=== PATIENT | female | born 2000 | race Caucasian/White ===

== ENCOUNTER → 2019-10-10 12:30 | Outpatient (CLI) | payer BC, SELFPAY ==
--- NOTE | ~2019-10-10 | CT_ITS ---
EXAMINATION: CT abdomen pelvis w con INDICATION: Right lower quadrant TECHNIQUE: Computed tomographic images of the abdomen and pelvis were obtained after the administrati on of 100 cc of Omnipaque 350 intravenous contrast. The dose-length product (DLP) was 305.11 mGy-cm. Automated exposure control and iterative reconstruction technique were employed. COMPARISON: None available FINDINGS: The lung bases are clear. The heart size is normal. Pectus excavatum is noted. The liver, s pleen, pancreas, gallbladder, and adrenal glands are normal. The right kidney is normal. A 3 mm cyst is noted in the left kidney lower pole. No pathologically enlarged abdominal or pelvic lymph nodes ar e identified. There is no free intraperitoneal gas or evidence of bowel obstruction. The appendix is normal. IMPRESSION: 1. No CT correlate for the patient's symptoms. Reviewed, dictated and finalized at location B.
== END ==
PROVIDERS: PCP Physician Assistant; Visit Provider Physician Assistant
DX: R10.31 Right lower quadrant pain (principal)
CPT/HCPCS: 74177; Q9967

== ENCOUNTER 2020-12-20 11:50 | Emergency (ER) | payer BC, SELFPAY ==
--- NOTE | 2020-12-20 11:54 | ED.WOUNDLAC ---
HPI - Wound/Laceration General Chief Complaint: Wound/Laceration Stated Complaint: DOG BITE Time Seen by Provider: 12/20/20 11:54 Source: patient and RN notes reviewed History of Present Illness HPI narrative: Patient is a 20-year-old female who presents the urgent care with complaints of a dog bite to the left forearm. Patient states that happened yesterday by her cousin's dog who is up-to-date on vaccinations. Patient states that she has cleaned it out with soap and water but was worried due to one of the puncture wounds draining . Patient states she is also up-to-date on her tetanus shot. No other acute complaints. Denies of any fever, chills, nausea, vomiting. No acute distress noted. Patient aware of the plan of care. Some parts of this dictation were generated by voice recognition software and may contain typographical and/or grammatical inaccuracies. Related Data Allergies Allergy/AdvReac Type Severity Reaction Status Date / Time No Known Allergies Allergy Verified 12/20/20 12:01 Review of Systems Review of Systems: Narrative: CONSTITUTIONAL: Denies fever, chills, or sweats. EYES: Denies visual changes, redness, or discharge. ENT: Denies rhinorrhea, congestion, sore throat, or otalgia. CARDIOVASCULAR: Denies chest pain, palpitations, or edema. RESPIRATORY: Denies cough or dyspnea. GASTROINTESTINAL: Denies abdominal pain, nausea, vomiting, or diarrhea. GENITOURINARY: Denies dysuria or hematuria. SKIN: Reports of a dog bite to the left forearm MUSCULOSKELETAL: Denies back pain, joint pain, or myalgia. NEUROLOGIC: Denies headache, numbness, or weakness. All other systems reviewed are negative, except as documented in HPI. PMFSH Social History Social History Smoking status: Never smoker Alcohol intake: never Comments At the time of my signature, I reviewed and agree with the nursing past medical, surgical, social, and family history. There is no relevant family history pertinent to the patient complaint. Exam Narrative: Exam Narrative: GENERAL: This is a well-nourished, well-developed patient, in no apparent distress. HEAD: normocephalic, atraumatic. EYES: PERRL. Sclera clear/white. Vision is grossly intact. EARS: External ears normal NOSE: External nose normal with no obvious nasal discharge, nares without redness, no rhinorrhea. THROAT: Mucous membranes moist NECK: Neck supple SKIN: 3 small puncture wounds to the left dorsal forearm without signs or symptoms of cellulitis NEURO: awake, alert, and oriented to person, place and time. There were no obvious focal neurologic abnormalities. EXTREMITIES: No clubbing, cyanosis, or edema. Positive strong left radial pulse with capillary refill less than 2 seconds Course Vital Signs Vital signs: Vital Signs Temperature 99.0 F 12/20/20 11:55 Pulse Rate 127 H 12/20/20 11:55 Respiratory Rate 16 12/20/20 11:55 Blood Pressure 129/77 12/20/20 11:55 Pulse Oximetry 100 12/20/20 11:55 Temperature 99.0 F 12/20/20 11:55 Pulse Rate 127 H 12/20/20 11:55 Respiratory Rate 16 12/20/20 11:55 Blood Pressure 129/77 12/20/20 11:55 Pulse Oximetry 100 12/20/20 11:55 Reviewed MDM - Wound/Laceration MDM Narrative Medical decision making narrative: Advised the patient to keep the wound very clean with plain Dial soap and water. Do not use peroxide or alcohol to the wound. Keep it covered if at risk of being soiled or while you are working or in school. Be aware of signs and symptoms of worsening infection such as increased redness, swelling, fever, nausea, vomiting. Do not attempt to close the wounds. Allow them to drain. Complete the oral antibiotic regimen as prescribed. Be sure to eat and drink with the medication. Follow-up with your PCP within 2 to 5 days or for worsening symptoms or failure to improve. Differential Diagnosis Differential diagnosis: Likely laceration, abscess and abras
[2020-12-20 11:55] VITALS: BP 129/77; PULSE 127; RESP 16; TEMP 37.2; O2SAT 100
== END 2020-12-20 12:16 | disposition home or self-care (01) ==
PROVIDERS: Emergency Provider Nurse Practitioner Family; PCP Physician Assistant
DX: S51.832A Puncture wound without foreign body of left forearm, initial encounter (principal); W54.0XXA Bitten by dog, initial encounter
CPT/HCPCS: 99213; G0463